=== PATIENT | female | born 1960 | race Caucasian/White ===

== ENCOUNTER 2018-08-15 05:00 | Day surgery (SDC) | payer BC ==
[2018-08-14 15:54] VITALS: BMI 22.0
[~2018-08-15] VITALS: Ht 157.5 cm; Wt 59.2 kg
[2018-08-15] VITALS (18 sets, daily range): BP systolic 100–122; BP diastolic 71–87; PULSE 73–98; RESP 11–18; Ht 157.5 cm; Wt 59.2 kg
[~2018-08-15 05:00] MED LIST: OXYB10TA6 PO; REXALTI; wellbutrin
--- NOTE | 2018-08-15 05:40 | NUR ---
RECEIVED PATIENT FROM ER OUT PATIENT AMBULATORY A/OX 4. V/S STABLE IV STARTED LEFT ARM .PER PATIENT NPO SINCE LAST NIGHT AT 11PM. CONSENT FOR SURGERY OBTAINED.
[2018-08-15] MEDS ORDERED: LIDOCAINE 2% (MDV) 20 ML INJ ONE ×2 (07:07→08:56)
[2018-08-15] MEDS ORDERED: DEXAMETHASONE 4 MG/ML 1 ML INJ ONE (07:07)
[2018-08-15] MEDS ORDERED: BUPIVACAINE 0.5% (SDV) 30 ML INJ ONE ×2 (07:07→08:56)
--- NOTE | 2018-08-15 07:18 | PREAC ---
Date/Time of Note Date/Time of Note DATE: 08/15/18 TIME: 07:17 Anesthesia Eval and Record Evaluation Time Pre-Procedure Interview DATE: 08/15/18 TIME: 07:17 Age 57 Sex female NPO: 8 hrs Preoperative diagnosis left second hammertoe Planned procedure left second hammertoe correction Past Medical History Past Medical History: Includes Psych: Depression Surgery & Anesthesia Issues No known issue Meds Anticoagulation: No Beta Tarun within 24 hr: No Reason Beta Tarun not given: Pt. not on B-Tarun Reported Medications [rexalti] No Conflict Check, DAILY 08/14/18 [wellbutrin] No Conflict Check, DAILY 08/14/18 Oxybutynin Chloride* (Ditropan* XL) 10 Mg Tab.er.24, 30 MG PO DAILY, TAB.SA 08/14/18 Meds reviewed: Yes Allergies Coded Allergies: No Known Allergy (Unverified , 08/14/18) Allergies Reviewed: Yes Labs/Studies Labs Reviewed: Reviewed by anesthesiologist test: N/A Pre-procedure Exam Last vitals Vital Signs Date Temp Pulse Resp B/P (MAP) Pulse Ox O2 O2 Flow FiO2 Time Delivery Rate 08/15/18 98.4 73 18 119/85 98 Room Air 06:29 (96) Airway: Adequate mouth opening, Adequate thyromental dist Mallampati: Mallampati I Teeth: Normal Lung: Normal Heart: Normal ASA Physical Status ASA physical status: 1 Emergency: None Planned Anesthetic General/MAC: LMA Planned Pain Management Parenteral pain med Pre-operative Attestations Prior to commencing anesthesia and surgery, the patient was re-evaluated, there was verification of: *The patient's identity *The results of appropriate recent lab work and preoperative vital signs *The above evaluation not changing prior to induction *Anesthetic plan, risk benefits, alternative and complications discussed with patient/family; questions answered; patient/family understands, accepts and wishes to proceed. VENANCIO EKNNEY Aug 15, 2018 07:18
--- NOTE | 2018-08-15 07:55 | HPN ---
Date/Time of Note Date/Time of Note DATE: 08/15/18 TIME: 07:55 Interval H&P Admission Note Pt. seen H&P reviewed: No system changes AMANDA CUETO DPM Aug 15, 2018 07:55
[2018-08-15] MEDS ORDERED: FENTAnyl 50 MCG/ML VIAL ONE (08:00)
[2018-08-15] MEDS ORDERED: MIDAZOLAM 1 MG/ML 2 ML INJ ONE (08:00)
[2018-08-15] MEDS ORDERED: ROCURONIUM 50 MG INJ ONE (08:21)
[2018-08-15] MEDS ORDERED: DEXAMETHASONE 4 MG/ML 5 ML INJ ONE (08:21)
[2018-08-15] MEDS ORDERED: ONDANSETRON 4 MG INJ ONE (08:21)
[2018-08-15] MEDS ORDERED: NEOSTIGMINE 3 MG/3 ML SYRINGE ONE (08:33)
[2018-08-15] MEDS ORDERED: GLYCOPYRROLATE 0.4 MG INJ ONE (08:34)
--- NOTE | 2018-08-15 08:34 | SIPON ---
Date/Time of Note Date/Time of Note DATE: 08/15/18 TIME: 08:33 Operative Report Preoperative Diagnosis painful hammertoe left second toe. Postoperative Diagnosis painful hammertoe left second toe. Operation/Procedure Performed hammertoe correction left second toe. Surgeon see signature line anesthesiologists' assistant none Anesthesia: general Estimated blood loss: none Transfusion Required none Specimen none Grafts/Implants none Complications none AMANDA CUETO DPM Aug 15, 2018 08:34
--- NOTE | 2018-08-15 08:37 | NUR ---
RECEIVED PATIENT FROM OR VIA BED POST LEFT 2ND HAMMER TOE CORRECTION UNDER GENERAL ANESTHESIA .STILL SEDATED ON ARRIVAL .ON ROOM AIR SATURATING 96 % SR. BP STABLE .LEFT FOOT WRAP WITH DRESSING AND CO BAND WRAP.
--- NOTE | 2018-08-15 08:43 | PAC ---
Date/Time of Note Date/Time of Note DATE: 08/15/18 TIME: 08:42 Post-Anesthesia Notes Post-Anesthesia Note Last documented vital signs Vital Signs Date Temp Pulse Resp B/P (MAP) Pulse Ox O2 O2 Flow FiO2 Time Delivery Rate 08/15/18 98.4 73 18 119/85 98 Room Air 08:42 (96) Activity: WNL Respiratory function: WNL Cardiovascular function: WNL Mental status: Baseline Pain reasonably controlled: Yes Hydration appropriate: Yes Nausea/Vomiting absent: Yes VENANCIO KENNEY Aug 15, 2018 08:43
[2018-08-15] MEDS ORDERED: ONDANSETRON 4 MG INJ IV PRN (09:00)
[2018-08-15] MEDS ORDERED: DIPHENHYDRAMINE 50 MG INJ IV PRN (09:00)
[2018-08-15] MEDS ORDERED: FENTAnyl 50 MCG/ML VIAL IV PRN ×3 (09:00)
[2018-08-15] MEDS ORDERED: KETOROLAC 30 MG INJ IV PRN (09:00)
[2018-08-15] MEDS ORDERED: ALBUTEROL 0.083% (NEB) 2.5 MG/3 ML AMP HHN PRN (09:00)
[2018-08-15] MEDS ORDERED: OXYCODONE/ACETAMINOPHEN (5/325) TAB PO PRN ×2 (09:00)
[2018-08-15] MEDS ORDERED: METOCLOPRAMIDE 10 MG INJ IV PRN (09:00)
[2018-08-15] MEDS ORDERED: HYDROmorphONE 1 MG/5 ML IV SYRINGE IV PRN ×3 (09:00)
[2018-08-15] MEDS ORDERED: EPHEDrine SULFATE 50 MG/5 ML SYG IV PRN (09:00)
[2018-08-15] MEDS ORDERED: LABETALOL HCL 20MG INJ IV PRN (09:00)
[2018-08-15] MEDS ORDERED: hydrALAzine 20 MG INJ IV PRN (09:00)
[2018-08-15] MEDS ORDERED: MEPERIDINE 25 MG INJ IV PRN (09:00)
--- NOTE | 2018-08-15 09:06 | NUR ---
PATIENT NOW AWAKE DENIES PAIN.ICE PACK APPLIED TO LEFT FOOT.
--- NOTE | 2018-08-15 10:25 | NUR ---
DISCHARGE HOME IN STABLE CONDITION .DRESSING TO LEFT FOOT DRY AND INTACT .LEFT FOOT ON POST OP SURGICAL SHOE. IVDISCONTINUED. INSTRUCTION EXPLAINED TO PATIENT NAD HER FRIEND .COPY GIVEN TO PATIENT.WENT HOME WITH ALL HER BELONGINGS
--- NOTE | 2018-08-17 14:01 | OPR ---
DATE OF OPERATION: 08/15/2018 SURGEON: Megan Mak DPM. ANESTHESIOLOGIST: Dr. Mary. PREOPERATIVE DIAGNOSIS: Hammertoe deformity, left 2nd toe. POSTOPERATIVE DIAGNOSIS: Hammertoe deformity, left 2nd toe. PROCEDURE PERFORMED: Hammertoe correction, left 2nd toe. ANESTHESIA: General. OPERATIVE PROCEDURE: The patient was brought into the operating room, placed on the table in a secure supine position. Cardiac monitoring, IV sedation and an ankle pneumatic tourniquet were utilized for this case. Preoperatively, a total of 5 mL of 0.5 percent Marcaine plain mixed with 2 percent lidocaine plain were infiltrated into the left 2nd toe. Upon achieving anesthesia, the foot and leg were prepped and draped in the usual sterile manner. The ankle pneumatic tourniquet was inflated to 250 mmHg. A 3 cm linear incision was performed over the left 2nd toe. The incision was deepened superficial bleeders were cauterized and bovied as necessary. The incision was deepened down to the capsule, linear capsulotomy, tenotomy was performed. The joint was identified, the proximal interphalangeal joint. The head of the proximal phalanx was resected as well as the base of the intermediate phalanx of cartilaginous surfaces. Arthrodesis was achieved with a 0.045 Tahira wire. Good alignment was achieved with the pin fixation and bone resection. The surgical site was irrigated with sterile saline mixed with bacitracin solution. The capsule and tendon were reapproximated with #4-0 Vicryl simple interrupted sutures. The skin edges were reapproximated with #4-0 nylon horizontal mattress stitches. The dressing consisted of tincture of benzoin, Steri-Strips, 4 x 4 gauze, 4 inch Kerlix roll, 2 inch Coban and a compressive dressing. Bacitracin ointment around the pin site was applied. The ankle pneumatic tourniquet was deflated. Immediate hyperemia to all digits of the left foot were noted instantaneously. No intraoperative complications were encountered. The patient tolerated the above procedure well and left the OR with vital signs stable and satisfactory. Patient will follow up 1 week postop. Dictated By: Megan Mak DPM /[email or web address] /Document#: [id number]
== END 2018-08-15 10:25 | disposition home or self-care (01) ==
LOC: SDS 05:00
PROVIDERS: ATTEND Podiatrist Primary Podiatric Medicine
DX: M20.42 Other hammer toe(s) (acquired), left foot (principal)
CPT/HCPCS: 28285; J1100; J2250; J2405; J2710; J3010; Z7610; C1713